=== PATIENT | male | born 1990 | race Caucasian/White ===

== ENCOUNTER 2023-03-06 04:33 | Emergency (ER) | payer MEDICAID, MEDICARE, OTHER ==
[~2023-03-06] VITALS: Ht 177.8 cm; Wt 87.0 kg
[2023-03-06 06:06] VITALS: BP 129/84; PULSE 67; RESP 18; TEMP 97.8; O2SAT 98
[2023-03-06] MEDS ORDERED: IBUP-2030 MT (09:58)
== END 2023-03-06 10:16 | disposition home or self-care (01) ==
LOC: ER 04:33
DX: S43.101A Unspecified dislocation of right acromioclavicular joint, initial encounter (principal); V19.9XXA Pedal cyclist (driver) (passenger) injured in unspecified traffic accident, initial encounter; Y93.89 Activity, other specified; Y92.89 Other specified places as the place of occurrence of the external cause; Y99.8 Other external cause status
CPT/HCPCS: 73030; 99283; A4565